=== PATIENT | female | born 1990 | race Caucasian/White ===

== ENCOUNTER 2020-07-17 04:44 | Inpatient (IN) ==
[2020-07-17] MEDS ORDERED: LACTATED RINGERS 500 ML IV PRN (05:24)
[2020-07-17] MEDS ORDERED: MEPERIDINE 50 MG/1 ML VIAL IV PRN ×2 (05:24→05:44)
[2020-07-17] MEDS ORDERED: ONDANSETRON 4 MG/2 ML VIAL IV PRN (05:24)
[2020-07-17] MEDS ORDERED: LACTATED RINGERS 1,000 ML IV SCH (05:30)
[2020-07-17] MEDS ORDERED: OXYTOCIN/LR 20 UNIT/1,000 ML BAG IV SCH (05:30)
[2020-07-17 06:02] LABS: Basophils % 0.1 % (0.0-0.8); Eosinophils % 0.1 % (0.00-10.9); Hematocrit 29.4 VOL% (35.7-47.0); Hemoglobin 9.3 GM/DL (12.0-16.0); Immature Granulocytes % 0.9 %; Immature Granulocytes Absolute 0.08 #; Lymphocytes # 2.1 10*3/uL (1.4-4.0); Lymphocytes % 23.6 % (21.3-54.2); Mean Corpuscular HGB Conc 31.6 GM/DL (32-36); Mean Platelet Volume 10.9 FL (9.6-12.0); Monocytes % 6.7 % (1.7-12.7); Neutrophils % 68.6 % (38.7-73.9); Platelet Count 280 T/CUMM (130-400); Red Cell Distribution Width 14.4 % (9.3-17.3); White Blood Count 8.8 T/CUMM (4-12)
[2020-07-17 06:30] LABS: Bilirubin,Total 0.4 MG/DL (0.2-1.0); Calcium 9.8 MG/DL (8.5-10.1); Osmolality,Calculated 276.4 MOS/KG (273-304); Potassium 3.7 MMOL/L (3.5-5.1); Total Protein 7.7 G/DL (6.4-8.2)
[2020-07-17] MEDS ORDERED: FAMOTIDINE 20 MG/2 ML VIAL IV ONE (06:43)
[2020-07-17] MEDS ORDERED: CITRIC ACID/SODIUM CITRATE 30 ML UDCUP PO ONE (06:43)
[2020-07-17] MEDS ORDERED: diphenhydrAMINE 50 MG/1 ML VIAL IV PRN (06:43)
[2020-07-17] MEDS ORDERED: NALOXONE 0.4 MG/ML VIAL IV PRN (06:43)
[2020-07-17] MEDS ORDERED: hydrOXYzine HCL 25 MG/1 ML VIAL IM PRN (06:43)
[2020-07-17] MEDS ORDERED: LACTATED RINGERS 1,000 ML IV ONE (06:43)
[2020-07-17] MEDS ORDERED: ePHEDrine 50 MG/ML VIAL IV PRN (06:43)
[2020-07-17] MEDS ORDERED: fentaNYL 2 MCG/ROPIV 0.2% EPID 100 ML EPIDURAL SCH (07:00)
[2020-07-17] MEDS ORDERED: miSOPROStoL 200 MCG TABLET ONE (09:08)
[2020-07-17] MEDS ORDERED: METHYLERGONOVINE 0.2 MG/1 ML AMP ONE (09:09)
[2020-07-17] MEDS ORDERED: CARBOPROST TROMETHAMINE 250 MCG/ML AMP IM ONE (09:09)
[2020-07-17 09:59] LABS: Cord Arterial Blood HCO3 17.7 MMOL/L
[2020-07-17 10:01] LABS: Cord Venous Blood HCO3 22.2 MMOL/L; Cord Venous Blood PCO2 49.4 MMHG; Cord Venous Blood PO2 29.7 MMHG
[2020-07-17 10:10] LABS: Bilirubin,Urine Negative (Negative); Blood, Urine Moderate mg/dL (Negative); Glucose,Urine (UA) Negative (Negative); Hyaline Casts,Urine 1 /LPF (0-3); Ketones,Urine Negative (Negative); Mucus,Urine Occasional /LPF (Occasional); Nitrite,Urine Negative (Negative); Protein,Urine Negative; RBC,Urine 26 /HPF (0-4); Squamous Epithelial Cell,Urine Occasional /HPF (0-10); Urine Appearance CLEAR (Clear); Urine Color Yellow (Yellow); Urine Specific Gravity 1.015 (1.001-1.035); Urine Urobilinogen < 2.0 EU/DL (0.2-1.0)
[2020-07-17] MEDS ORDERED: oxyCODONE/ACETAMINOPHEN 5-325 MG TABLET PO PRN (19:59)
[2020-07-17] MEDS: oxyCODONE/ACETAMINOPHEN 5-325 MG TABLET PO PRN (21:26)
[2020-07-17] MEDS: DOCUSATE SODIUM 100 MG CAPSULE PO SCH (21:26)
[2020-07-18 05:30] LABS: Basophils % 0.1 % (0.0-0.8); Eosinophils % 0.2 % (0.00-10.9); Hematocrit 25.8 VOL% (35.7-47.0); Hemoglobin 8.2 GM/DL (12.0-16.0); Immature Granulocytes % 0.5 %; Immature Granulocytes Absolute 0.05 #; Lymphocytes # 2.3 10*3/uL (1.4-4.0); Lymphocytes % 23.2 % (21.3-54.2); Mean Corpuscular HGB Conc 31.8 GM/DL (32-36); Mean Corpuscular Volume 83.2 FL (87-102); Mean Platelet Volume 11.4 FL (9.6-12.0); Monocytes % 5.8 % (1.7-12.7); Neutrophils % 70.2 % (38.7-73.9); Platelet Count 210 T/CUMM (130-400); Red Cell Distribution Width 14.4 % (9.3-17.3); White Blood Count 9.8 T/CUMM (4-12)
[2020-07-18] MEDS ORDERED: MEASLES/MUMPS/RUBELLA VACCINE 0.5 ML VIAL SUBCUT ONE (06:31)
[2020-07-18] MEDS ORDERED: RHO(D) IMMUNE GLOBULIN 300 MCG SYRINGE IM ONE (06:31)
[2020-07-18] MEDS ORDERED: DIPH/TET/ACEL PERT BOOSTER VACCINE 0.5 ML VIAL IM ONE (06:31)
[2020-07-18] MEDS ORDERED: oxyCODONE/ACETAMINOPHEN 5-325 MG TABLET PO PRN ×2 (06:31)
[2020-07-18] MEDS ORDERED: ONDANSETRON 4 MG/2 ML VIAL IV PRN (06:31)
[2020-07-18] MEDS ORDERED: LANOLIN 50% CREAM 0.3 OZ TUBE TOP PRN (06:31)
[2020-07-18] MEDS ORDERED: WITCH HAZEL PADS 100/JAR TOP PRN (06:31)
[2020-07-18] MEDS ORDERED: BISACODYL 10 MG SUPP RECTAL PRN (06:31)
[2020-07-18] MEDS ORDERED: OXYTOCIN/LR 20 UNIT/1,000 ML BAG IV ONE (06:31)
[2020-07-18] MEDS ORDERED: BENZOCAINE 20%/MENTHOL 0.5% SPRAY 56 GM CAN TOP PRN (06:31)
[2020-07-18] MEDS ORDERED: ACETAMINOPHEN 325 MG TABLET PO PRN (06:31)
[2020-07-18] MEDS ORDERED: HYDROCORTISONE 2.5% RECTAL CREAM 30 GM TUBE TOP PRN (06:31)
[2020-07-18] MEDS ORDERED: DOCUSATE SODIUM 100 MG CAPSULE PO SCH (09:00)
[2020-07-18] MEDS: IBUPROFEN 800 MG TABLET PO PRN ×2 (10:15→21:12)
[2020-07-18] MEDS: DOCUSATE SODIUM 100 MG CAPSULE PO SCH ×2 (10:15→21:14)
[2020-07-18] MEDS: FERROUS SULFATE 325 MG TABLET PO SCH ×2 (10:15→21:14)
[2020-07-18] MEDS: valACYclovir 500 MG TABLET PO SCH ×2 (10:31→21:12)
[2020-07-18] MEDS: oxyCODONE/ACETAMINOPHEN 5-325 MG TABLET PO PRN (21:14)
[2020-07-19 05:47] LABS: Basophils % 0.1 % (0.0-0.8); Eosinophils % 0.4 % (0.00-10.9); Hematocrit 24.6 VOL% (35.7-47.0); Hemoglobin 7.9 GM/DL (12.0-16.0); Immature Granulocytes % 0.7 %; Immature Granulocytes Absolute 0.05 #; Lymphocytes # 2.6 10*3/uL (1.4-4.0); Lymphocytes % 35.6 % (21.3-54.2); Mean Corpuscular HGB Conc 32.1 GM/DL (32-36); Mean Corpuscular Volume 83.1 FL (87-102); Mean Platelet Volume 10.8 FL (9.6-12.0); Monocytes % 6.4 % (1.7-12.7); Neutrophils % 56.8 % (38.7-73.9); Platelet Count 214 T/CUMM (130-400); Red Blood Count 2.96 MC/CUMM (3.8-5.5); Red Cell Distribution Width 14.6 % (9.3-17.3); White Blood Count 7.2 T/CUMM (4-12)
[2020-07-19 06:04] LABS: Eosinophils 1 % (0-10); Hypochromasia 2+; Lymphocytes 34 % (20-55); Microcytosis 1+; Platelet Estimate Adequate; Segmented Neutrophils 60 % (50-85); Total Cells Counted 100
[2020-07-19 07:12] VITALS: BP 109/67
[2020-07-19] MEDS: valACYclovir 500 MG TABLET PO SCH (08:59)
[2020-07-19] MEDS: DOCUSATE SODIUM 100 MG CAPSULE PO SCH (09:00)
[2020-07-19] MEDS: FERROUS SULFATE 325 MG TABLET PO SCH (09:00)
== END 2020-07-19 10:55 | disposition home or self-care (01) | DRG 560 ==
LOC: N.LDOUT 04:44 → N.LD 04:51 → N.OB 12:29
PROVIDERS: ADMIT Specialist; ATTEND Specialist